=== PATIENT | female | born 1930 | race Caucasian/White ===

== ENCOUNTER 2021-06-17 22:25 | Emergency (ER) | payer MEDICARE, OTHER ==
[~2021-06-17 22:25] MED LIST: AMOX TR-K CLV1 EAC4 PO; ASPIRIN EC81 MG PO; ATORVASTATIN CA20 MG PO; BACTRIM 400-801 EACH PO; BETAPACE 80MG T80 MG PO; BREO ELLIPTA 21 EACH INH; CARTIA XT180 MG PO; CENTRUM MU9 MG/15 ML PO; COQ-10100 MG PO; FERROCITE324 MG PO; FERROUS SU300 MG/5 M PO; FLONASE 0.05% N16 GM; HYDROCODON-ACE1 EAC6 PO; IBU800 MG PO; IBUPROFEN400 MG PO; INCRUSE ELLI62.5 MCG INH; LASIX40 MG PO; LEVALBUTER1.25 MG/3 NEB; LIDOCAINE PAIN1 EACH EXT; LOPRESSOR 50 MG50 MG PO; LORTAB 5-325 M1 EACH PO; MEGACE 400400 MG/10 PO; MUCOMYST 20% 4 M4 ML NEB; MULTAQ400 MG PO; MYCOSTATIN100000 UTS PO; PANTOPRAZOLE SO40 MG PO; PREDNISONE 20 M20 MG GT; Prednisone; REQUIP0.25 MG PO; ROPINIROLE HCL1 MG PO; ULTRAM50 MG PO; VENTOLIN HFA 66.7 GM INH; XARELTO20 MG PO; ZOLPIDEM TARTRA10 MG PO; [UNRECOGNIZED DRUG - REMARK]
== END 2021-06-17 22:50 ==
LOC: ER1 22:25
DX: Z00.00 Encounter for general adult medical examination without abnormal findings (principal); J44.9 Chronic obstructive pulmonary disease, unspecified
CPT/HCPCS: 99284

== ENCOUNTER 2021-06-20 11:19 | Inpatient (IN) | payer MEDICARE, OTHER ==
[~2021-06-20] VITALS: Ht 160 cm; Wt 37.9 kg
[2021-06-20 14:14] LABS: HEMOGLOBIN 8.9 gm/dl (12.3-15.3); RED BLOOD COUNT 3.21 M/UL (4.00-5.10); WHITE BLOOD COUNT 14.9 K/UL (4.5-11.0)
[2021-06-20] MEDS ORDERED: HYDROCODON-ACE1 EAC6 PO (17:11)
[2021-06-20] MEDS ORDERED: FERROUS SULFAT325 MG PO (17:15)
[2021-06-20] MEDS ORDERED: XARELTO15 MG PO (18:45)
[2021-06-20] MEDS ORDERED: FAMOTIDINE20 MG PO (18:45)
[2021-06-20] MEDS ORDERED: AMITRIPTYLINE H50 MG PO (18:46)
[2021-06-20] MEDS ORDERED: ROPINIROLE HCL2 MG PO (18:47)
[2021-06-20] MEDS ORDERED: DALIRESP500 MCG PO (18:47)
[2021-06-20] MEDS ORDERED: METOPROLOL TART25 MG PO (18:48)
[2021-06-20] MEDS ORDERED: CLEARLAX119 GM PO (18:50)
[2021-06-21 06:13] LABS: HEMOGLOBIN 7.3 gm/dl (12.3-15.3); WHITE BLOOD COUNT 13.3 K/UL (4.5-11.0)
--- NOTE | 2021-06-21 06:23 | NUR ---
2200- WAS UNABLE TO OBTAIN A TEMPERATURE ORAL OR AXILLARY. RECTAL TEMP SHOWED A TEMP OF 95 DEGREES. PLACED DIANE HUGGER ON PATIENT. WILL CONTINUE TO MONITOR THE PATIENT CLOSELY. 0100- RECHECKED PATIENT'S TEMPERATURE IT SHOWED 97.7 ORALLY. DIANE HUGGER REMOVED. WILL CONTINUE TO MONITOR THE PATIENT.
[2021-06-21 06:25] LABS: RED BLOOD COUNT 2.68 M/UL (4.00-5.10)
[2021-06-21 07:10] LABS: BUN/CREATININE RATIO 31 (0-10)
--- NOTE | 2021-06-21 12:57 | NUR ---
1000: UNABLE TO OBTAIN ACCURATE TEMP, OBTAINED RECTALLY AT 95.4. PLACED ON WARMING BLANKET. 1100: RECTAL TEMP NOTED AT 96.4, WILL CONTINUE WITH WARMING BLANKET AND MONITOR.
--- NOTE | 2021-06-21 21:23 | NUR ---
PT'S ORAL TEMPERATURE WAS 98.5 DEGREES FARENHEIT. PT'S AXILLARY TEMPERATURE WAS 99.1 DEGREES FARENHEIT. REMOVED DIANE MORRIS FROM PT. RECHECKED ORAL TEMP AT 2224, ORAL TEMPERATURE WAS 98.2 DEGREES FARENHEIT.
[2021-06-22 10:46] LABS: HEMOGLOBIN 7.3 gm/dl (12.3-15.3); RED BLOOD COUNT 2.72 M/UL (4.00-5.10); WHITE BLOOD COUNT 11.9 K/UL (4.5-11.0)
[2021-06-23 07:19] LABS: HEMOGLOBIN 7.8 gm/dl (12.3-15.3); RED BLOOD COUNT 2.87 M/UL (4.00-5.10); WHITE BLOOD COUNT 10.8 K/UL (4.5-11.0)
[2021-06-23 08:47] LABS: BUN/CREATININE RATIO 18 (0-10)
[2021-06-24 06:28] LABS: HEMOGLOBIN 6.8 gm/dl (12.3-15.3); RED BLOOD COUNT 2.53 M/UL (4.00-5.10); WHITE BLOOD COUNT 7.4 K/UL (4.5-11.0)
[2021-06-24 06:54] LABS: BUN/CREATININE RATIO 14 (0-10)
[2021-06-24 07:59] LABS: RED BLOOD COUNT 2.57 M/UL (4.00-5.10); WHITE BLOOD COUNT 7.5 K/UL (4.5-11.0)
[2021-06-25 03:46] LABS: RED BLOOD COUNT 2.6 M/UL (4.00-5.10)
[2021-06-25 04:06] LABS: BUN/CREATININE RATIO 13 (0-10)
[2021-06-26 09:44] LABS: HEMOGLOBIN 8.6 gm/dl (12.3-15.3); WHITE BLOOD COUNT 6.9 K/UL (4.5-11.0)
[2021-06-26 09:46] LABS: RED BLOOD COUNT 3.26 M/UL (4.00-5.10)
[2021-06-26 10:33] LABS: BUN/CREATININE RATIO 16 (0-10)
--- NOTE | 2021-06-26 21:36 | NUR ---
GAVE PT 5MG OF METOPROLOL IVP PER ORDER FOR TACHYCARDIA. MED WOULD NOT SCAN ON EMAR. PHARMACY NOTIFIED ALSO.
[2021-06-28 12:07] LABS: HEMOGLOBIN 8.9 gm/dl (12.3-15.3); RED BLOOD COUNT 3.32 M/UL (4.00-5.10)
[2021-06-28 12:10] LABS: WHITE BLOOD COUNT 8.7 K/UL (4.5-11.0)
--- NOTE | 2021-06-28 23:45 | NUR ---
PT HAD A VERY SMALL AMOUNT OF URINE OUTPUT IN ANAYA CATHETER BAG (APPROX. 100 MLS). THE ANAYA INSERTION LINE WAS CLOGGED WITH WHITE SEDIMENT. FLUSHED LINE WITH NORMAL SALINE AND IMMEDIATELY GOT A RETURN OF 1600 MLS OF URINE IN ANAYA DRAINAGE BAG. WHITE SEDIMENT WAS VERY THICK AND HAD CLOGGED LINE COMPLETELY.
[2021-06-29 07:27] LABS: HEMOGLOBIN 7.5 gm/dl (12.3-15.3); WHITE BLOOD COUNT 8.9 K/UL (4.5-11.0)
[2021-06-29 07:28] LABS: RED BLOOD COUNT 2.79 M/UL (4.00-5.10)
[2021-06-30 05:29] LABS: HEMOGLOBIN 7.6 gm/dl (12.3-15.3); RED BLOOD COUNT 2.88 M/UL (4.00-5.10)
[2021-06-30 05:38] LABS: WHITE BLOOD COUNT 11.2 K/UL (4.5-11.0)
[2021-07-01 07:09] LABS: HEMOGLOBIN 7.3 gm/dl (12.3-15.3); RED BLOOD COUNT 2.83 M/UL (4.00-5.10)
[2021-07-01 07:12] LABS: WHITE BLOOD COUNT 22.1 K/UL (4.5-11.0)
[2021-07-03 15:39] LABS: HEMOGLOBIN 7.8 gm/dl (12.3-15.3); RED BLOOD COUNT 2.92 M/UL (4.00-5.10)
[2021-07-03 15:40] LABS: WHITE BLOOD COUNT 8.9 K/UL (4.5-11.0)
[2021-07-04] MEDS ORDERED: MEGACE 400400 MG/10 PO (11:57)
[2021-07-04] MEDS ORDERED: MULTIVITAM9 MG/15 M1 PO (11:57)
[2021-07-04] MEDS ORDERED: MYCOSTATIN100000 UTS PO (11:57)
[2021-07-04] MEDS ORDERED: LASIX20 MG PO (11:57)
[2021-07-04] MEDS ORDERED: LISINOPRIL10 MG PO (11:57)
[2021-07-04] MEDS ORDERED: LOPRESSOR50 MG PO (11:57)
[2021-07-04] MEDS ORDERED: IPRAT-ALBUT 0.5-3 ML NEB (11:57)
[2021-07-04] MEDS ORDERED: ROPINIROLE HCL1 MG PO (11:57)
[2021-07-04] MEDS ORDERED: MUCOMYST 20% 4 M4 ML NEB (11:57)
[2021-07-04] MEDS ORDERED: BUDESONIDE0.5 MG/2 M NEB (11:57)
[2021-07-04] MEDS ORDERED: HYDROCODON-ACE1 EAC4 PO (12:27)
--- NOTE | 2021-07-04 15:39 | NUR ---
attempted to call report at 1440. they stated they did not have the discharge paper work. I called [facility] and she said they have confirmed that they have got the paper work. attemped to call again at 1500, they stated again that they did not have the paper work. I called jovan again and she called them and confirmed that they have the paper work and they are to call me back. Currently waiting on their call.
--- NOTE | 2021-07-04 15:48 | NUR ---
attempted to call [facility] again. No answer.
== END 2021-07-04 22:00 | DRG 177 ==
LOC: ER1 11:19 → CDU 15:46 → MED SURG 4 15:46
PROVIDERS: Emergency Medicine; Internal Medicine; Internal Medicine Infectious Disease; Internal Medicine Pulmonary Disease; Physician Assistant; ADMIT Internal Medicine
DX: J69.0 Pneumonitis due to inhalation of food and vomit (principal); G93.41 Metabolic encephalopathy; J96.21 Acute and chronic respiratory failure with hypoxia; E43 Unspecified severe protein-calorie malnutrition; I50.32 Chronic diastolic (congestive) heart failure; J98.19 Other pulmonary collapse; J98.11 Atelectasis; T17.590A Other foreign object in bronchus causing asphyxiation, initial encounter; R64 Cachexia; Z20.822 Contact with and (suspected) exposure to COVID-19; Z66 Do not resuscitate; E87.6 Hypokalemia; J44.9 Chronic obstructive pulmonary disease, unspecified; G25.81 Restless legs syndrome; L89.151 Pressure ulcer of sacral region, stage 1; D50.9 Iron deficiency anemia, unspecified; I48.0 Paroxysmal atrial fibrillation; E86.1 Hypovolemia; I11.0 Hypertensive heart disease with heart failure; F03.90 Unspecified dementia, unspecified severity, without behavioral disturbance, psychotic disturbance, mood disturbance, and anxiety; Z82.3 Family history of stroke; Z83.3 Family history of diabetes mellitus; Z87.01 Personal history of pneumonia (recurrent); Z79.01 Long term (current) use of anticoagulants; Z88.1 Allergy status to other antibiotic agents; Z88.5 Allergy status to narcotic agent
CPT/HCPCS: 36415; 36600; 51701; 70450; 71045; 71250; 80048; 80053; 80202; 81001; 82140; 82550; 82553; 82803; 83540; 83550; 83605; 83735; 83874; 83880; 84132; 84439; 84443; 84484; 85025; 85027; 85610; 85730; 87040; 92526; 92610; 93005; 94640; 94664; 94667; 94668; 94760; 99284; 99285; C9113; J0692; J1756; J1940; J2920; J3370; J3480; J7030; J7070; P9047; U0002